=== PATIENT | female | born 1980 | race Caucasian/White ===

== ENCOUNTER → 2018-03-06 | Outpatient (REF) ==
[~2018-03-06] MED LIST: CULTURELLE10 Billion PO; EFFEXOR XR37.5 MG/CA PO; MULTI VITAMINS1 TAB PO; OYSCO 500500 M1 PO; PAMELOR 25MG25 MG PO; PROTONIX 40MG T40 MG PO; ZYRTEC 10MG10 MG PO
== END ==
LOC: ZLAB.WCH 08:45
DX: Z01.89 Encounter for other specified special examinations (principal)

== ENCOUNTER → 2020-09-01 | Outpatient (REF) | LOC: COL.CARD 14:11 | DX: Z01.810 Encounter for preprocedural cardiovascular examination (principal) ==

== ENCOUNTER → 2023-04-10 | Outpatient (CLI) | payer OTHER | LOC: MC.RAD 02-21 14:00 | DX: Z12.31 Encounter for screening mammogram for malignant neoplasm of breast (principal) ==

== ENCOUNTER → 2024-05-12 | Outpatient (CLI) | payer BC | LOC: MC.RAD 09:40 | DX: Z12.31 Encounter for screening mammogram for malignant neoplasm of breast (principal); Z12.4 Encounter for screening for malignant neoplasm of cervix ==